=== PATIENT | female | born 1975 | race Caucasian/White ===

== ENCOUNTER 2020-03-26 14:38 | Outpatient (REF) | payer MEDICAID, SELFPAY | END 2020-03-26 14:39 | disposition home or self-care (01) | LOC: HO.LAB 14:38 | PROVIDERS: PCP Internal Medicine; Visit Provider Internal Medicine | DX: Z20.828 Contact with and (suspected) exposure to other viral communicable diseases (principal) | CPT/HCPCS: C9803; U0003 ==

== ENCOUNTER → 2020-04-18 10:12 | Outpatient (BNVA) | payer MEDICAID, SELFPAY | PROVIDERS: Visit Provider Advanced Practice Midwife | DX: Z30.41 Encounter for surveillance of contraceptive pills (principal) | CPT/HCPCS: 99212 ==

== ENCOUNTER 2020-05-22 14:48 | Outpatient (REF) | payer MEDICAID, SELFPAY ==
--- NOTE | 2020-05-22 | MM_ITS ---
EXAMINATION: MM SCREENING DIGITAL BREAST TOMOSYNTHESIS, BILATERAL CLINICAL INFORMATION: Screening. Asymptomatic. Family history breast cancer, mother, maternal aunt. The lifetime risk of breast cancer based on the Tyrer-Cuzick Model is 25%. COMPARISON: Outside mammography: 06/21/2018 ([facility]). TECHNIQUE: Digital breast tomosynthesis is performed in both the craniocaudal and mediolateral oblique views along with computer-aided detection (CAD). Synthesized 2D images are generated from the tomosynthesis. FINDINGS: There are scattered areas of fibroglandular density (ACR BI-RADS breast composition Category b). There are no significant masses, abnormal calcifications, or other abnormalities. Parenchymal pattern is similar to prior outside exam. The axilla and skin contours are unremarkable. MM/MM tomosynthesis screening BI IMPRESSION: No mammographic evidence of malignancy. ASSESSMENT: BI-RADS 1: Negative RECOMMENDATION: Routine annual mammography screening. This patient's information was entered into a reminder system with a target due date for their next mammogram.
== END 2020-05-22 14:49 | disposition home or self-care (01) ==
LOC: HO.MAMMO 14:48
PROVIDERS: PCP Internal Medicine; Visit Provider Obstetrics & Gynecology
DX: Z12.31 Encounter for screening mammogram for malignant neoplasm of breast (principal)
CPT/HCPCS: 77063; 77067

== ENCOUNTER → 2020-06-04 12:08 | Outpatient (BNVA) | payer MEDICAID, SELFPAY | PROVIDERS: PCP Internal Medicine; Visit Provider Obstetrics & Gynecology ==

== ENCOUNTER 2020-12-07 07:19 | Outpatient (REF) | payer MEDICAID, SELFPAY ==
--- NOTE | ~2020-12-07 | MR_ITS ---
EXAMINATION: MR BREAST WITHOUT AND WITH CONTRAST, BILATERAL CLINICAL INFORMATION: High-risk screening for family history of mother and maternal aunt. Lifetime risk greater than 25%. COMPARISON: Correlation to mammogram of 05/22/2020 TECHNIQUE: Imaging was performed with a dedicated breast coil. Prior to the administration of contrast, bilateral axial T1 and bilateral axial T2 weighted sequences were obtained. After the uneventful administration of?6 mL of Gadavist, dynamic contrast-enhanced VIBRANT series through the breasts in the axial plane were performed. Subtracted images were performed and reviewed. A delayed sagittal sequence through both breasts was acquired. Additionally, CAD post-processing, including maximum intensity projections, 3-D reconstructions and kinetic analysis, were performed an independent workstation and reviewed by the interpreting radiologist is a portion of this exam. FINDINGS: The patient's fibroglandular tissue demonstrates minimal background enhancement. LEFT BREAST: No suspicious masslike or non-masslike enhancement. No abnormal skin thickening or nipple retraction. No abnormal architectural distortion. Review of the T2 weighted images demonstrates no fibrocystic changes or dilated ducts. Review of kinetic images reveals no additional findings. RIGHT BREAST: No suspicious masslike or non-masslike enhancement. No abnormal skin thickening or nipple retraction. No abnormal architectural distortion. Review of the T2 weighted images demonstrates no fibrocystic changes or dilated ducts. Review of kinetic images reveals no additional findings. There is no suspicious internal mammary chain or axillary adenopathy. Limited views of the chest and abdomen are unremarkable. MR/MR breast BI wo/w con IMPRESSION: No MR specific evidence of malignancy. ASSESSMENT: LEFT BREAST: BI-RADS 1-Negative RIGHT BREAST: BI-RADS 1-Negative RECOMMENDATIONS: Routine mammographic imaging as per most recent study and MRI as per high risk protocol.
== END 2020-12-07 07:20 | disposition home or self-care (01) ==
LOC: HO.MRI 07:19
PROVIDERS: Visit Provider Obstetrics & Gynecology
DX: Z91.89 Other specified personal risk factors, not elsewhere classified (principal)
CPT/HCPCS: 77049; A9585

== ENCOUNTER 2020-12-18 20:30 | Emergency (ER) | payer MEDICAID, SELFPAY ==
--- NOTE | ~2020-12-18 | XR_ITS ---
EXAMINATION: XR CHEST CLINICAL INFORMATION: Fever COMPARISON: None TECHNIQUE: Frontal view of the chest was obtained. FINDINGS: The lungs are well expanded. There is no focal consolidation, edema, or effusion. No pneumothorax. The cardiomediastinal silhouette is within normal limits. No acute osseous abnormality. XR/XR chest 1V IMPRESSION: Clear lungs.
[2020-12-18 21:52] VITALS: BP 105/62; PULSE 97; RESP 18; TEMP 38.4; O2SAT 99; BMI 23.0
[2020-12-18 22:27] LABS: Hemoglobin 13.5 g/dl (12.0-16.0); Lymphocytes Absolute Auto 0.3 X10*3/uL (1.2-4.9); MANUAL DIFF FLAG SCAN; Mean Corpuscular Volume 91.7 fL (80-98); Monocytes Percent Auto 5.2 % (2-11); PLT CLUMP 1; SCAN SMEAR FLAG 1
[2020-12-18 22:28] LABS: Basophils Percent Auto 0.4 % (0-2); Hematocrit 39.7 % (37-47); Imm Gran Abs Auto 0.02 X10*3/uL (0.00-0.03); Imm Gran Pct Auto 0.4 % (0.0-0.4); Lymphocytes Percent Auto 5.8 % (20-40); Mean Corpuscular Hemoglobin 31.2 pg (27.0-33.0); Mean Platelet Volume 9.9 fL (9.4-12.3); Monocytes Absolute Auto 0.2 X10*3/uL (0.1-1.2); Neutrophils Absolute Auto 4.1 X10*3/uL (2.0-8.3); Neutrophils Percent Auto 88.2 % (45-73); Platelet Count 105 X10*3/uL (160-400); Red Blood Count 4.33 X10*6/uL (4.20-5.50); Red Cell Distribution Width 13.6 % (11.0-16.0); White Blood Count 4.6 X10*3/uL (4.8-10.8)
[2020-12-18 22:33] LABS: Appearance Urine CLEAR; Color Urine YELLOW; Glucose Urine UA NEG (NEG); Leukocyte Esterase Urine NEG (NEG); Nitrite Urine NEG (NEG); PH 7.5 (5.0-8.0); SLIDE REVIEW VERIFIED; Specific Gravity - Urine 1.015 (1.005-1.025); UACC Culture Trigger NO; Urine Blood NEG (NEG); Urine Ketones 5 MG/DL (NEG); Urine Protein 2+ MG/DL (NEG-TRACE)
[2020-12-18 22:34] LABS: UPreg QC Valid YES; Urine Pregnancy NEGATIVE (NEGATIVE)
[2020-12-18 22:42] LABS: Bacteria Urine 1+ /LPF; RBC Urine 0-2 /HPF (0); Squamous Epithelial Cell Urine TRACE /LPF; WBC Urine 0-2 /HPF (0-4)
[2020-12-18 22:55] LABS: Alanine Aminotransferase 40 U/L (0-31); Alkaline Phosphatase 46 U/L (39-117); Anion Gap 12 (12-20); Aspartate Amino Transferase 47 U/L (5-31); Bilirubin Total 0.7 mg/dL (0.0-1.0); Blood Urea Nitrogen 5 mg/dL (9-16); Calcium 8.8 mg/dL (8.4-10.2); Carbon Dioxide 24 mmol/L (22-29); Chloride 103 mmol/L (96-108); Creatinine Clr Calc Pharmacy 65.2; Estimated Glomerular Filt Rate > 60; Glucose Random 130 mg/dL (60-115); Potassium 3.7 mmol/L (3.3-5.1); Sodium 135 mmol/L (135-145); Total Protein 6.8 g/dL (6.5-8.0)
[2020-12-18 23:16] LABS: Influenza A PCR NEGATIVE (Negative); Influenza B PCR NEGATIVE (Negative); Resp Syncy Virus RNA Qual PCR NEGATIVE (Negative); SARS COV2 PCR INHOUSE NEGATIVE (Negative)
--- NOTE | 2020-12-19 00:03 | ED_ITS ---
HPI - Nausea/Vomiting/Diarrhea General Chief complaint: Nausea/Vomiting/Diarrhea <ALEJANDRA Lou - Last Filed: 12/19/20 00:53> Stated complaint: vomitting <ALEJANDRA Lou - Last Filed: 12/19/20 00:53> Time Seen by Provider: 12/18/20 23:44 <ALEJANDRA Lou Last Filed: 12/19/20 00:53> Source: patient <ALEJANDRA Lou Last Filed: 12/19/20 00:53> Mode of arrival: ambulatory <ALEJANDRA Lou Last Filed: 12/19/20 00:53> History of Present Illness HPI Narrative: 45-year-old female with no significant past medical history presenting to the ED complaining of generalized fatigue, myalgias, headache, fever T-max 103?, nausea, vomiting x2 days. Reports decreased PO intake. Reports was treated for UTI last week. Admits recently travel to [place]. Denies known bad food exposure. Denies CP/SOB, cough, abdominal pain, diarrhea, constipation, dysuria/hematuria, flank pain Was COVID vaccinated in September. <ALEJANDRA Lou - Last Filed: 12/19/20 00:53> MD elicited complaint: nausea and vomiting <ALEJANDRA Lou Last Filed: 12/19/20 00:53> Related Data Home medications: Previous Rx's Medication Instructions Recorded norethindrone (contraceptive) 0.35 0.35 mg PO DAILY #84 tab 04/18/20 mg tablet aluminum-mag hydroxide-simethicone 5 ml PO 5XD PRN #30 ml 12/19/20 200 mg-200 mg-20 mg/5 mL oral susp (Maalox Advanced) famotidine 20 mg tablet (Pepcid) 20 mg PO DAILY #14 tab 12/19/20 ondansetron HCl 4 mg tablet 4 mg PO Q8H PRN #10 tab 12/19/20 (Zofran) <ALEJANDRA Lou Last Filed: 12/19/20 00:53> Allergies/Adverse reactions: Allergies Allergy/AdvReac Type Severity Reaction Status Date / Time lactose [LACTOSE] AdvReac Intermediate DIARRHEA Verified 12/18/20 21:52 latex Allergy Unknown rash Uncoded 02/17/20 14:04 <ALEJANDRA Lou - Last Filed: 12/19/20 00:53> Review of Systems Review of Systems: Constitutional: +Fever, + Chills, No Night Sweats, + Fatigue, + Malaise ENT/Mouth: No Ear Pain, No sore throat, No Swallowing Difficulty Eyes: No Eye Pain, No Vision Changes Cardiovascular: No Chest Pain, No SOB Respiratory: No Cough, No Dyspnea Gastrointestinal: + Nausea, + Vomiting, No Diarrhea, No Constipation, No Abdominal pain Genitourinary: No Dysuria, No Hematuria, No Flank Pain Musculoskeletal: No joint pain, +Myalgias, No Joint Swelling Skin: No Skin Lesions, No rash Neuro: + Weakness, No Dizziness, +Headache <ALEJANDRA Lou - Last Filed: 12/19/20 00:53> Yes all other systems are reviewed and are negative <ALEJANDRA Lou - Last Filed: 12/19/20 00:53> [facility] Past Medical History Attestation statement: The following information was validated with the patient. <ALEJANDRA Lou Last Filed: 12/19/20 00:53> Medical History: Medical History History of cervical dysplasia History of depression <ALEJANDRA Lou Last Filed: 12/19/20 00:53> Surgical History: Surgical History History of loop electrosurgical excision procedure (LEEP) of cervix <ALEJANDRA Lou Last Filed: 12/19/20 00:53> Family History Family History: Family History Mother HTN (hypertension) Breast cancer Maternal Grandfather Cardiac abnormality Father Diabetes Pulmonary fibrosis Maternal Grandmother Colon cancer <ALEJANDRA Lou Last Filed: 12/19/20 00:53> Social History Social History: Social History Alcohol intake: current Alcohol intake frequency: 0-2 drinks per day Cigarettes Per Day: 6 Years Smoked: 22 Advance Directives: No Advance Directives Information Provided: No Patient : No Sexual orientation: Straight/Heterosexual <ALEJANDRA Lou - Last Filed: 12/19/20 00:53> Physical Exam Vital Signs: Vital Signs: Last Vital Signs Temp 101.1 F H 12/18/20 21:52 Pulse 97 12/18/20 21:52 Resp 18 12/18/20 21:52 BP 105/62 12/18/20 21:52 Pulse Ox 99 12/18/20 21:52 Body Mass Index 23.0 <ALEJANDRA Lou - Last Filed: 12/19/20 00:53> Vital Signs: Last Vital Signs Temp 101.1 F H 12/18/20 21:52 Pulse 97 12/18/20 21:52 Resp 18 12/18/20 21:52 BP 105/62 12/18/20 21:52 Pulse Ox 99 12/18/20 21:52 Body Mass Index 23.0 <ALEJANDRA Collazo - Last Filed: 12/19/20 01:31> Const: General: cooperative, healthy appearing and no acute distress <ALEJANDRA Lou - Last Filed: 12/19/20 00:53> Orientation/consciousness: patient oriented x3 <ALEJANDRA Lou - Last Filed: 12/19/20 00:53> Limitations: no limitations <ALEJANDRA Lou - Last Filed: 12/19/20 00:53> HENMT: Head: Yes normal to inspection and Yes atraumatic <ALEJANDRA Lou - Last Filed: 12/19/20 00:53> Ears: hearing grossly normal bilaterally <ALEJANDRA Lou - Last Filed: 12/19/20 00:53> General nose exam: Normal external nose present <ALEJANDRA Lou - Last Filed: 12/19/20 00:53> Face and sinus: Yes normal facial exam <ALEJANDRA Lou - Last Filed: 12/19/20 00:53> Eyes: General: appearance normal, both eyes and all related structures <ALEJANDRA Lou - Last Filed: 12/19/20 00:53> EOM: EOMs intact bilaterally <ALEJANDRA Lou - Last Filed: 12/19/20 00:53> Neck: Neck: Yes normal visual inspection and Yes no meningeal signs <ALEJANDRA Lou - Last Filed: 12/19/20 00:53> Resp: Effort & Inspection: normal respiratory effort <Jemma Chinonishi PA - Last Filed: 12/19/20 00:53> Auscultation: clear to auscultation bilaterally, no crackles, no rales, no r honchi and no wheezes <Jemma Chinonishi PA - Last Filed: 12/19/20 00:53> Cardio: Rate: regular rate <Jemma Grayson OK - Last Filed: 12/19/20 00:53> Heart sounds: S1 normal heart sound present and S2 normal heart sound present <Jemma Grayson OK - Last Filed: 12/19/20 00:53> GI: Inspection: Yes normal to inspection <Jemma Grayson OK - Last Filed: 12/19/20 00:53> Palpation (GI): Soft to palpation, nontender, no guarding and not rigid <Jemma Grayson OK - Last Filed: 12/19/20 00:53> : General: Yes no CVA tenderness <Jemma Grayson OK - Last Filed: 12/19/20 00:53> Back/Spine/Pelvis: Back: no CVA tenderness <Jemma Grayson OK - Last Filed: 12/19/20 00:53> Skin: Rashes: no rashes <Jemma Grayson OK - Last Filed: 12/19/20 00:53> Wounds: no wounds <Jemma Grayson [facility] [place] Last Filed: 12/19/20 00:53> Neuro: General: patient oriented x3 and no meningeal signs <Jemma Grayson OK - Last Filed: 12/19/20 00:53> Gait exam (Neuro): Normal gait present <Jemma Grayson OK - Last Filed: 12/19/20 00:53> Extrem: General: Yes normal to inspection <Jemmaclinton Galicia PA - Last Filed: 12/19/20 00:53> Course Course Course Narrative: -leukopenia of 4.6, AST/ALT mildly elevated, labs otherwise unremarkable -UA with 2+ protein, not infected, urine negative, COVID- 19/influenza/RSV negative XR chest 1V IMPRESSION: Clear lungs. -0051--on re-evaluation patient sitting up, able to tolerate p.o. rory quentin, just received symptomatic medications, will reassess. Results discussed. ED care transferred to ALEJANDRA Avila pending re-evaluation/symptomatic improvement <ALEJANDRA Lou - Last Filed: 12/19/20 00:53> Reevaluation(s) Reevaluation #1: Repeat temp 99.3. Patient feeling much better. She is stable for d/c home with supportive care. <ALEJANDRA Collazo - Last Filed: 12/19/20 01:31> MDM - Nausea/Vomiting/Diarrhea MDM Narrative Medical decision making narrative: 45-year-old female with no significant past medical history presenting to the ED complaining of generalized fatigue, myalgias, fever T-max 103?, nausea, vomiting x2 days. On exam, febrile to 101.1, NAD/nontoxic appearing, lungs CTA, abdomen soft/nontender, no CVAT. Concern for COVID-19/viral syndrome vs gastroenteritis vs colitis. Rule out continue DTI. Low concern for pyelo/renal stone without CVAT. Low concern for appendicitis/diverticulitis or panc reatitis Plan: Labs, UA, COVID-19 testing, IVF, symptomatic from days, reassess <ALEJANDRA Lou - Last Filed: 12/19/20 00:53> Medical Records Attestation: I reviewed the patient's medical records. <ALEJANDRA Lou Last Filed: 12/19/20 00:53> Lab Data Attestation: I reviewed the patient's lab results. <ALEJANDRA Lou Last Filed: 12/19/20 00:53> Result diagrams: : 12/18/20 22:17 12/18/20 22:17 <ALEJANDRA Lou Last Filed: 12/19/20 00:53> Labs: Lab Results 12/18/20 12/18/20 12/18/20 Range/Units 22:17 22:17 22:17 WBC 4.6 L (4.8-10.8) X10*3/uL RBC 4.33 (4.20-5.50) X10*6/uL Hgb 13.5 (12.0-16.0) g/dl Hct 39.7 (37-47) % MCV 91.7 (80-98) fL MCH 31.2 (27.0-33.0) pg MCHC 34.0 (31.0-35.0) g/dl RDW 13.6 (11.0-16.0) % Plt Count 105 L (160-400) X10*3/uL MPV 9.9 (9.4-12.3) fL Immature Gran % (Auto) 0.4 (0.0-0.4) % Neut % (Auto) 88.2 H (45-73) % Lymph % (Auto) 5.8 L (20-40) % [place] % (Auto) 5.2 (2-11) % Eos % (Auto) 0.0 (0-4) % Baso % (Auto) 0.4 (0-2) % Lymph # (Auto) 0.3 L (1.2-4.9) X10*3/uL [place] # (Auto) 0.2 (0.1-1.2) X10*3/uL Eos # (Auto) 0.0 (0.0-0.4) X10*3/uL Baso # (Auto) 0.0 (0.0-0.2) X10*3/uL Abs Immat Gran (auto) 0.02 (0.00-0.03) X10*3/uL Absolute Neuts (auto) 4.1 (2.0-8.3) X10*3/uL Absolute Nucleated RBC 0.000 (0.0-0.012) X10*3/uL Nucleated RBC % (auto) 0.0 (0.0-0.2) /100WBC Smear Tech's Comments VERIFIED Sodium 135 (135-145) mmol/L Potassium 3.7 (3.3-5.1) mmol/L Chloride 103 (96-108) mmol/L Carbon Dioxide 24 (22-29) mmol/L Anion Gap 12 (12-20) BUN 5 L (9-16) mg/dL Creatinine 0.92 (0.5-1.4) mg/dL Estim Creat Clear Calc 65.2 Estimated GFR > 60 Random Glucose 130 H (60-115) mg/dL Calcium 8.8 (8.4-10.2) mg/dL Magnesium 2.0 (1.6-2.6) mg/dL Total Bilirubin 0.7 (0.0-1.0) mg/dL AST 47 H (5-31) U/L ALT 40 H (0-31) U/L Alkaline Phosphatase 46 (39-117) U/L Total Protein 6.8 (6.5-8.0) g/dL Albumin 4.0 (3.5-5.0) g/dL Lipase 12 (8-78) U/L Urine Color Urine Appearance Urine pH (5.0-8.0) Ur Specific [place] (1.005-1.025) Urine Protein (NEG-TRACE) MG/DL Urine Glucose (UA) (NEG) MG/DL Urine Ketones (NEG) MG/DL Urine Blood (NEG) Urine Nitrite (NEG) Ur Leukocyte Esterase (NEG) Urine RBC (0) /HPF Urine WBC (0-4) /HPF Ur Squamous Epith Cells /LPF Urine Bacteria /LPF Urine Test NEGATIVE (NEGATIVE) Coronavirus (PCR) (Negative) Influenza Type A (PCR) (Negative) Influenza Type B (PCR) (Negative) RSV RNA Qual (PCR) (Negative) 12/18/20 12/18/20 Range/Units 22:17 22:17 WBC (4.8-10.8) X10*3/uL RBC (4.20-5.50) X10*6/uL Hgb (12.0-16.0) g/dl Hct (37-47) % MCV (80-98) fL MCH (27.0-33.0) pg MCHC (31.0-35.0) g/dl RDW (11.0-16.0) % Plt Count (160-400) X10*3/uL MPV (9.4-12.3) fL Immature Gran % (Auto) (0.0-0.4) % Neut % (Auto) (45-73) % Lymph % (Auto) (20-40) % [place] % (Auto) (2-11) % Eos % (Auto) (0-4) % Baso % (Auto) (0-2) % Lymph # (Auto) (1.2-4.9) X10*3/uL [place] # (Auto) (0.1-1.2) X10*3/uL Eos # (Auto) (0.0-0.4) X10*3/uL Baso # (Auto) (0.0-0.2) X10*3/uL Abs Immat Gran (auto) (0.00-0.03) X10*3/uL Absolute Neuts (auto) (2.0-8.3) X10*3/uL Absolute Nucleated RBC (0.0-0.012) X10*3/uL Nucleated RBC % (auto) (0.0-0.2) /100WBC Smear Tech's Comments Sodium (135-145) mmol/L Potassium (3.3-5.1) mmol/L Chloride (96-108) mmol/L Carbon Dioxide (22-29) mmol/L Anion Gap (12-20) BUN (9-16) mg/dL Creatinine (0.5-1.4) mg/dL Estim Creat Clear Calc Estimated GFR Random Glucose (60-115) mg/dL Calcium (8.4-10.2) mg/dL Magnesium (1.6-2.6) mg/dL Total Bilirubin (0.0-1.0) mg/dL AST (5-31) U/L ALT (0-31) U/L Alkaline Phosphatase (39-117) U/L Total Protein (6.5-8.0) g/dL Albumin (3.5-5.0) g/dL Lipase (8-78) U/L Urine Color YELLOW Urine Appearance CLEAR Urine pH 7.5 (5.0-8.0) Ur Specific [place] 1.015 (1.005-1.025) Urine Protein 2+ H (NEG-TRACE) MG/DL Urine Glucose (UA) NEG (NEG) MG/DL Urine Ketones 5 (NEG) MG/DL Urine Blood NEG (NEG) Urine Nitrite NEG (NEG) Ur Leukocyte Esterase NEG (NEG) Urine RBC 0-2 (0) /HPF Urine WBC 0-2 (0-4) /HPF Ur Squamous Epith Cells TRACE /LPF Urine Bacteria 1+ /LPF Urine Test (NEGATIVE) Coronavirus (PCR) NEGATIVE (Negative) Influenza Type A (PCR) NEGATIVE (Negative) Influenza Type B (PCR) NEGATIVE (Negative) RSV RNA Qual (PCR) NEGATIVE (Negative) <ALEJANDRA Lou - Last Filed: 12/19/20 00:53> Lab Results 12/18/20 12/18/20 12/18/20 Range/Units 22:17 22:17 22:17 WBC 4.6 L (4.8-10.8) X10*3/uL RBC 4.33 (4.20-5.50) X10*6/uL Hgb 13.5 (12.0-16.0) g/dl Hct 39.7 (37-47) % MCV 91.7 (80-98) fL MCH 31.2 (27.0-33.0) pg MCHC 34.0 (31.0-35.0) g/dl RDW 13.6 (11.0-16.0) % Plt Count 105 L (160-400) X10*3/uL MPV 9.9 (9.4-12.3) fL Immature Gran % (Auto) 0.4 (0.0-0.4) % Neut % (Auto) 88.2 H (45-73) % Lymph % (Auto) 5.8 L (20-40) % [place] % (Auto) 5.2 (2-11) % Eos % (Auto) 0.0 (0-4) % Baso % (Auto) 0.4 (0-2) % Lymph # (Auto) 0.3 L (1.2-4.9) X10*3/uL [place] # (Auto) 0.2 (0.1-1.2) X10*3/uL Eos # (Auto) 0.0 (0.0-0.4) X10*3/uL Baso # (Auto) 0.0 (0.0-0.2) X10*3/uL Abs Immat Gran (auto) 0.02 (0.00-0.03) X10*3/uL Absolute Neuts (auto) 4.1 (2.0-8.3) X10*3/uL Absolute Nucleated RBC 0.000 (0.0-0.012) X10*3/uL Nucleated RBC % (auto) 0.0 (0.0-0.2) /100WBC Smear Tech's Comments VERIFIED Sodium 135 (135-145) mmol/L Potassium 3.7 (3.3-5.1) mmol/L Chloride 103 (96-108) mmol/L Carbon Dioxide 24 (22-29) mmol/L Anion Gap 12 (12-20) BUN 5 L (9-16) mg/dL Creatinine 0.92 (0.5-1.4) mg/dL Estim Creat Clear Calc 65.2 Estimated GFR > 60 Random Glucose 130 H (60-115) mg/dL Calcium 8.8 (8.4-10.2) mg/dL Magnesium 2.0 (1.6-2.6) mg/dL Total Bilirubin 0.7 (0.0-1.0) mg/dL AST 47 H (5-31) U/L ALT 40 H (0-31) U/L Alkaline Phosphatase 46 (39-117) U/L Total Protein 6.8 (6.5-8.0) g/dL Albumin 4.0 (3.5-5.0) g/dL Lipase 12 (8-78) U/L Urine Color Urine Appearance Urine pH (5.0-8.0) Ur Specific [place] (1.005-1.025) Urine Protein (NEG-TRACE) MG/DL Urine Glucose (UA) (NEG) MG/DL Urine Ketones (NEG) MG/DL Urine Blood (NEG) Urine Nitrite (NEG) Ur Leukocyte Esterase (NEG) Urine RBC (0) /HPF Urine WBC (0-4) /HPF Ur Squamous Epith Cells /LPF Urine Bacteria /LPF Urine Test NEGATIVE (NEGATIVE) Coronavirus (PCR) (Negative) Influenza Type A (PCR) (Negative) Influenza Type B (PCR) (Negative) RSV RNA Qual (PCR) (Negative) 12/18/20 12/18/20 Range/Units 22:17 22:17 WBC (4.8-10.8) X10*3/uL RBC (4.20-5.50) X10*6/uL Hgb (12.0-16.0) g/dl Hct (37-47) % MCV (80-98) fL MCH (27.0-33.0) pg MCHC (31.0-35.0) g/dl RDW (11.0-16.0) % Plt Count (160-400) X10*3/uL MPV (9.4-12.3) fL Immature Gran % (Auto) (0.0-0.4) % Neut % (Auto) (45-73) % Lymph % (Auto) (20-40) % [place] % (Auto) (2-11) % Eos % (Auto) (0-4) % Baso % (Auto) (0-2) % Lymph # (Auto) (1.2-4.9) X10*3/uL [place] # (Auto) (0.1-1.2) X10*3/uL Eos # (Auto) (0.0-0.4) X10*3/uL Baso # (Auto) (0.0-0.2) X10*3/uL Abs Immat Gran (auto) (0.00-0.03) X10*3/uL Absolute Neuts (auto) (2.0-8.3) X10*3/uL Absolute Nucleated RBC (0.0-0.012) X10*3/uL Nucleated RBC % (auto) (0.0-0.2) /100WBC Smear Tech's Comments Sodium (135-145) mmol/L Potassium (3.3-5.1) mmol/L Chloride (96-108) mmol/L Carbon Dioxide (22-29) mmol/L Anion Gap (12-20) BUN (9-16) mg/dL Creatinine (0.5-1.4) mg/dL Estim Creat Clear Calc Estimated GFR Random Glucose (60-115) mg/dL Calcium (8.4-10.2) mg/dL Magnesium (1.6-2.6) mg/dL Total Bilirubin (0.0-1.0) mg/dL AST (5-31) U/L ALT (0-31) U/L Alkaline Phosphatase (39-117) U/L Total Protein (6.5-8.0) g/dL Albumin (3.5-5.0) g/dL Lipase (8-78) U/L Urine Color YELLOW Urine Appearance CLEAR Urine pH 7.5 (5.0-8.0) Ur Specific [place] 1.015 (1.005-1.025) Urine Protein 2+ H (NEG-TRACE) MG/DL Urine Glucose (UA) NEG (NEG) MG/DL Urine Ketones 5 (NEG) MG/DL Urine Blood NEG (NEG) Urine Nitrite NEG (NEG) Ur Leukocyte Esterase NEG (NEG) Urine RBC 0-2 (0) /HPF Urine WBC 0-2 (0-4) /HPF Ur Squamous Epith Cells TRACE /LPF Urine Bacteria 1+ /LPF Urine Test (NEGATIVE) Coronavirus (PCR) NEGATIVE (Negative) Influenza Type A (PCR) NEGATIVE (Negative) Influenza Type B (PCR) NEGATIVE (Negative) RSV RNA Qual (PCR) NEGATIVE (Negative) <ALEJANDRA Collazo - Last Filed: 12/19/20 01:31> Discharge Plan Discharge Clinical Impression: Gastroenteritis <ALEJANDRA Lou - Last Filed: 12/19/20 00:53> Patient Disposition: Home, Self-Care <ALEJANDRA Lou Last Filed: 12/19/20 00:53> Instructions: Acute Nausea and Vomiting (ED) <ALEJANDRA Lou - Last Filed: 12/19/20 00:53> Additional Instructions: Your blood work was reassuring, does show Mild decrease in her white blood cell count and mild increasing your liver enzymes You likely have a viral illness Zofran as an antinausea medication, take as needed Pepcid and Maalox will help with stomach acid reduction It is crucial you stay hydrated at home, drink plenty of fluids, Gatorade, Pedialyte Please follow-up with her doctor If her symptoms persist or worsen, constant or unremitting fever, constant nausea/vomiting, you are unable to eat or drink please return to the ED immediately <ALEJANDRA Lou - Last Filed: 12/19/20 00:53> Prescriptions: New ondansetron HCl [Zofran] 4 mg tablet 4 mg PO Q8H PRN (Reason: nausea and vomiting) Qty: 10 RF: 0 famotidine [Pepcid] 20 mg tablet 20 mg PO DAILY Qty: 14 RF: 0 alum-mag hydroxide-simeth [Maalox Advanced] 200-200-20 mg/5 mL suspension 5 ml PO 5XD PRN (Reason: dyspepsia) Qty: 30 RF: 0 No Action norethindrone (contraceptive) 0.35 mg tablet 0.35 mg PO DAILY Qty: 84 RF: 3 <ALEJANDRA Lou Last Filed: 12/19/20 00:53> Referrals: Alina Thornton MD [Primary Care Provider] - 2 days <ALEJANDRA Lou - Last Filed: 12/19/20 00:53>
[2020-12-19] MEDS: ondansetron HCL 4 MG/2 ML VIAL IVPUSH (00:07)
[2020-12-19] MEDS: Ketorolac Tromethamine 15 MG/ML VIAL IVPUSH (00:07)
[2020-12-19] MEDS: Famotidine/PF 20 MG/2 ML VIAL IVPUSH (00:07)
[2020-12-19 00:15] LABS: Lipase 12 U/L (8-78)
[2020-12-19] MEDS: Lidocaine HCl Viscous 2 % 15 ML SOLUTION MUCOUS MEM (00:45)
[2020-12-19] MEDS: Acetaminophen 325 MG TABLET 650 MG PO (00:45)
[2020-12-19] MEDS: Magnesium Hydrox/Alum Hydrox 30 ML ORAL.SUSP PO (00:45)
[2020-12-19 02:00] VITALS: BP 100/38; PULSE 91; RESP 16; O2SAT 97
[2020-12-19 02:11] VITALS: BP 100/38; PULSE 83; RESP 16
[2020-12-19] MEDS: Butalb/Acetamin/Caff 50/325/40 TABLET 1 TAB PO (02:12)
== END 2020-12-19 02:17 | disposition home or self-care (01) ==
PROVIDERS: Physician Assistant; Emergency Provider Emergency Medicine; PCP Internal Medicine
DX: K52.9 Noninfective gastroenteritis and colitis, unspecified (principal); Z20.822 Contact with and (suspected) exposure to COVID-19; R50.9 Fever, unspecified; M79.10 Myalgia, unspecified site; F17.210 Nicotine dependence, cigarettes, uncomplicated
CPT/HCPCS: 0241U; 36415; 71045; 80053; 81001; 81025; 83690; 83735; 85025; 96374; 96375; 99284; J1885; J2405

== ENCOUNTER 2020-12-21 10:10 | Emergency (ER) | payer MEDICAID, SELFPAY ==
[2020-12-21 10:50] VITALS: BP 111/64; PULSE 75; RESP 18; TEMP 36.8; O2SAT 99; BMI 23.3
--- NOTE | 2020-12-21 11:55 | ED.GENADULT ---
HPI - General Adult General Chief complaint: Headache Stated complaint: headache Time Seen by Provider: 12/21/20 11:07 Source: patient Mode of arrival: ambulatory Limitations: no limitations History of Present Illness HPI narrative: 45-year-old female presents due to a call from urgent care provider who saw her yesterday. She reports urgent care provider was concerned for her low white blood cell count and low platelet count and sent her here for recheck.. Stated that urgent care provider did a tick panel on her yesterday. Patient awoke with a headache that resolved this morning with Aleve, patient has no symptoms at this time Four days ago the patient had gradual onset headache, vomiting, fevers, fatigue, myalgias, and nausea. Patient was seen December 19, 2 days ago in the emergency room. Patient was COVID negative, labs were notable for white blood cell count of 4.6 platelet count of 105. Urine was negative, chest x-ray was negative. Patient was diagnosed with a gastroenteritis. When she had her headache she was mildly photophobic, no visual changes, no stiff neck, no rashes, no joint pain. Reports her headache was in the back of her lower skull bilaterally, and she was using acetaminophen to control it. Patient's fever resolved yesterday, she is no longer nauseous, no more vomiting, she can eat food. Reports today she woke up with a headache, and used Aleve for the 1st time since this started. Reports no headache at all now, no other symptoms. Patient was on Macrobid last week for UTI. 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 Onset (ago): day(s) (4) Location: head Radiation: non-radiation Severity: moderate Severity scale (1-10): 7 Quality: aching Pain Consistency: intermittent and now resolved Relieving factors: medication Exacerbating factors: none Associated symptoms: denies other symptoms Treatments prior to arrival: NSAID Related Data Previous Rx's Medication Instructions Recorded norethindrone (contraceptive) 0.35 0.35 mg PO DAILY #84 tab /16/20 mg tablet aluminum-mag hydroxide-simethicone 5 ml PO 5XD PRN #30 ml 12/19/20 200 mg-200 mg-20 mg/5 mL oral susp (Maalox Advanced) famotidine 20 mg tablet (Pepcid) 20 mg PO DAILY #14 tab 12/19/20 ondansetron HCl 4 mg tablet 4 mg PO Q8H PRN #10 tab 12/19/20 (Zofran) doxycycline hyclate 100 mg tablet 100 mg PO BID 14 Days #28 tab 12/21/20 Allergies Allergy/AdvReac Type Severity Reaction Status Date / Time lactose [LACTOSE] AdvReac Intermediate DIARRHEA Verified 12/21/20 10:50 latex Allergy Unknown rash Uncoded 02/17/20 14:04 Review of Systems Constitutional: Constitutional: Reports body ache(s) (now resolved), Reports fatigue (now resolvd), Reports fever(s) (now resolved), Reports headache(s) (now resolved) and Reports malaise (now resolved) Eyes: Eyes: Denies blurry vision, Denies change in vision, Denies diplopia, Denies eye pain and Reports photophobia ENT: Denies vertigo, Denies dizziness, Denies otalgia, Reports headache(s) (now resolved), Denies mouth pain, Denies post nasal drip, Denies sinus pain and Denies sore throat Cardiovascular: Cardiovascular: Denies chest pain, Denies syncope, Denies leg edema, Denies lightheadedness, Denies Loss of Consciousness, Denies palpitations and Denies dyspnea Respiratory: Respiratory: Denies chest congestion, Denies cough and Denies dyspnea Gastrointestinal: Gastrointestinal: Denies abdominal pain, Denies hematochezia, Denies constipation, Denies diarrhea, Reports nausea (now resolved) and Reports vomiting (now resolved) Genitourinary: Genitourinary: Reports no additional female genitourinary complaints Musculoskeletal: Musculoskeletal: Reports myalgias (now resolved) Integumentary/Breasts: Skin/Breast: Denies lesions, Denies erythema and Denies rash Neurologic: Denies Abnormal speech present, Denies confusion, Denies vertigo, Denies dizziness, Denies syncope, Reports headache(s) (now resolved) and Denies Sensory deficit (Neuro) Psychiatric: Psychiatric: Denies anxiety, Denies confusion and Denies depression Endocrine: Endocrine: Reports fatigue (now resolvd) and Denies palpitations PMFSH Past Medical History Medical History History of cervical dysplasia History of depression Surgical History History of loop electrosurgical excision procedure (LEEP) of cervix Family History Family History Mother HTN (hypertension) Breast cancer Maternal Grandfather Cardiac abnormality Father Diabetes Pulmonary fibrosis Maternal Grandmother Colon cancer Social History Social History Alcohol intake: current Alcohol intake frequency: 0-2 drinks per day Cigarettes Per Day: 6 Years Smoked: 22 Advance Directives: Yes Advance Directives Information Provided: Yes Advance Directives on File: No Patient : No Sexual orientation: Straight/Heterosexual Physical Exam Vital Signs: Vital Signs: Last Vital Signs Temp 98.3 F 12/21/20 10:50 Pulse 75 12/21/20 10:50 Resp 18 12/21/20 10:50 BP 111/64 12/21/20 10:50 Pulse Ox 99 12/21/20 10:50 Body Mass Index 23.3 Const: General: comfortable, no acute distress, well developed, alert and awake; No confusion Nutritional Appearance: well nourished Orientation/consciousness: patient oriented x3 and No confusion Limitations: no limitations HENMT: Head: Yes normal to inspection, Yes normocephalic and Yes atraumatic Ears: hearing grossly normal bilaterally, external ears normal, TM's normal bilaterally and EAC's normal General nose exam: Normal external nose present Face and sinus: Yes normal facial exam and Yes sinuses nontender Mouth: Normal oral and palatal mucosa present Throat: Yes posterior oropharynx normal Eyes: Conjunctivae: conjunctivae normal Pupils: Equal, round and reactive pupils present EOM: EOMs intact bilaterally and No Nystagmus present Direct Ophthalmoscopy: photophobia Neck: Neck: Yes full ROM, Yes no lymphadenopathy and Yes supple Resp: Effort & Inspection: normal respiratory effort and able to speak in complete sentences Auscultation: clear to auscultation bilaterally, no crackles, no rales, no rhonchi and no wheezes Cardio: Rate: regular rate Rhythm: regular rhythm Heart sounds: S1 normal heart sound present and S2 normal heart sound present GI: Inspection: Yes normal to inspection Palpation (GI): Soft to palpation, nontender, no guarding and not rigid Percussion: Yes normal to percussion Auscultation: normal bowel sounds Skin: General skin exam: no rashes or lesions noted Neuro: General: patient oriented x3, gait normal and No confusion Cranial nerves: Yes CN's II-XII intact bilaterally, Yes Facial sensation intact/muscles of mastication intact, Yes Equal, round and reactive pupils present, Yes Bilaterally intact EOM present, Yes Nystagmus not present, Yes Normal facial strength present, Yes Midline tongue present, Yes Ability to bilaterally rotate head present, Yes Ability to bilaterally elevate shoulders present and No Nystagmus present Cognition (Neuro): normal cognition Speech: No Abnormal speech present Gait exam (Neuro): Normal gait present Motor exam (neuro): 5/5 motor strength present throughout and Pronator motor function not present Sensory Exam: No Sensory deficit (Neuro) Deep tendon reflexes (DTR's): Right brachioradialis reflex intensity grade: 2+, Left brachioradialis reflex intensity grade: 2+, Right patellar reflex intensity grade: 2+ and Left patellar reflex intensity grade: 2+ Coordination: [id number] test normal, [id number] test normal, tandem gait normal, does not sway with eyes open, Romberg test negative and Normal rapid alternating movements of the distal upper extremity present (Neuro) Pupils: Normal pupillary reactivity/response: bilateral Extrem: General: Yes normal to inspection and Yes full ROM Psych: Appearance: grossly normal Affect: normal affect Attitude: cooperative Thought process: Normal thought process present Course Course Course Narrative: 85-year-old female who had headache, fevers, nausea, vomiting, sent here from urgent care for low white blood cell and platelet count. Patient tested for Lyme and tick panel yesterday at urgent care, however not placed on doxycycline. On exam, patient is well-appearing, no focal neuro deficits, neuro exam is completely benign. Patient has no lesions or rashes, no erythema migrans, no joint swelling or joint redness. On December 18, 2020, patient had a white blood cell count of 4.6, platelets 105, creatinine 0.92, hemoglobin 13.5, hematocrit 39.7 Today, patient has a white blood cell count of 4.5, platelet count of 111, creatinine of 0.71, hemoglobin 11.9, hematocrit 35.6 Sent FOBT, was positive, but no gross rectal bleeding Patient does endorse a history of hemorrhoids. 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 Treated with doxy for possible Lyme/Anplasmosis. Follow up with PCP. Headache return precautions: sudden worsening headache, visual changes, fevers Medical Decision Making Lab Data Result diagrams: 12/21/20 12:20 12/21/20 12:20 Labs: Lab Results 12/21/20 12/21/20 12/21/20 Range/Units 12:20 12:20 13:09 WBC 4.5 L (4.8-10.8) X10*3/uL RBC 3.84 L (4.20-5.50) X10*6/uL Hgb 11.9 L (12.0-16.0) g/dl Hct 35.6 L (37-47) % MCV 92.7 (80-98) fL MCH 31.0 (27.0-33.0) pg MCHC 33.4 (31.0-35.0) g/dl RDW 13.8 (11.0-16.0) % Plt Count 111 L (160-400) X10*3/uL MPV 11.4 (9.4-12.3) fL Immature Gran % (Auto) 0.2 (0.0-0.4) % Neut % (Auto) 52.6 (45-73) % Lymph % (Auto) 36.0 (20-40) % [place] % (Auto) 9.3 (2-11) % Eos % (Auto) 1.5 (0-4) % Baso % (Auto) 0.4 (0-2) % Lymph # (Auto) 1.6 (1.2-4.9) X10*3/uL [place] # (Auto) 0.4 (0.1-1.2) X10*3/uL Eos # (Auto) 0.1 (0.0-0.4) X10*3/uL Baso # (Auto) 0.0 (0.0-0.2) X10*3/uL Abs Immat Gran (auto) 0.01 (0.00-0.03) X10*3/uL Absolute Neuts (auto) 2.4 (2.0-8.3) X10*3/uL Absolute Nucleated RBC 0.000 (0.0-0.012) X10*3/uL Nucleated RBC % (auto) 0.0 (0.0-0.2) /100WBC Smear Tech's Comments VERIFIED Sodium 138 (135-145) mmol/L Potassium 3.9 (3.3-5.1) mmol/L Chloride 106 (96-108) mmol/L Carbon Dioxide 26 (22-29) mmol/L Anion Gap 10 L (12-20) BUN 7 L (9-16) mg/dL Creatinine 0.71 (0.5-1.4) mg/dL Estim Creat Clear Calc 84.5 Estimated GFR > 60 Random Glucose 103 (60-115) mg/dL Calcium 9.2 (8.4-10.2) mg/dL Total Bilirubin 0.3 (0.0-1.0) mg/dL AST 43 H (5-31) U/L ALT 54 H (0-31) U/L Alkaline Phosphatase 47 (39-117) U/L Total Protein 6.1 L (6.5-8.0) g/dL Albumin 3.6 (3.5-5.0) g/dL Stool Occult Blood (NEGATIVE) COVID-19 ([facility]) Negative (Negative) COVID-19 Clin Com See Note 12/21/20 Range/Units 13:09 WBC (4.8-10.8) X10*3/uL RBC (4.20-5.50) X10*6/uL Hgb (12.0-16.0) g/dl Hct (37-47) % MCV (80-98) fL MCH (27.0-33.0) pg MCHC (31.0-35.0) g/dl RDW (11.0-16.0) % Plt Count (160-400) X10*3/uL MPV (9.4-12.3) fL Immature Gran % (Auto) (0.0-0.4) % Neut % (Auto) (45-73) % Lymph % (Auto) (20-40) % [place] % (Auto) (2-11) % Eos % (Auto) (0-4) % Baso % (Auto) (0-2) % Lymph # (Auto) (1.2-4.9) X10*3/uL [place] # (Auto) (0.1-1.2) X10*3/uL Eos # (Auto) (0.0-0.4) X10*3/uL Baso # (Auto) (0.0-0.2) X10*3/uL Abs Immat Gran (auto) (0.00-0.03) X10*3/uL Absolute Neuts (auto) (2.0-8.3) X10*3/uL Absolute Nucleated RBC (0.0-0.012) X10*3/uL Nucleated RBC % (auto) (0.0-0.2) /100WBC Smear Tech's Comments Sodium (135-145) mmol/L Potassium (3.3-5.1) mmol/L Chloride (96-108) mmol/L Carbon Dioxide (22-29) mmol/L Anion Gap (12-20) BUN (9-16) mg/dL Creatinine (0.5-1.4) mg/dL Estim Creat Clear Calc Estimated GFR Random Glucose (60-115) mg/dL Calcium (8.4-10.2) mg/dL Total Bilirubin (0.0-1.0) mg/dL AST (5-31) U/L ALT (0-31) U/L Alkaline Phosphatase (39-117) U/L Total Protein (6.5-8.0) g/dL Albumin (3.5-5.0) g/dL Stool Occult Blood POSITIVE (NEGATIVE) COVID-19 ([facility]) (Negative) COVID-19 Clin Com Discharge Plan Discharge Clinical Impression: Abnormal laboratory test result Patient Disposition: Home, Self-Care Additional Instructions: Please fill your prescription for doxycycline and start it today. Please note the doxycycline can make you more sensitive to the sun. Please cover up and use sunscreen while you are taking it. Please buy [id number] B12 and folate, and use the supplements for the next month. Please call your primary care provider today for an appointment as soon as possible. You had blood in your stools today. Please arrange with the primary care provider to have a colonoscopy. If your headache is mild, do not worry. If you have a sudden severe headache, with or without vomiting, visual changes, stiff neck, or fevers, please return to emergency room Please return to emergency room for any new or concerning symptoms Prescriptions: New doxycycline hyclate 100 mg tablet 100 mg PO BID 14 Days Qty: 28 RF: 0 No Action ondansetron HCl [Zofran] 4 mg tablet 4 mg PO Q8H PRN (Reason: nausea and vomiting) Qty: 10 RF: 0 famotidine [Pepcid] 20 mg tablet 20 mg PO DAILY Qty: 14 RF: 0 alum-mag hydroxide-simeth [Maalox Advanced] 200-200-20 mg/5 mL suspension 5 ml PO 5XD PRN (Reason: dyspepsia) Qty: 30 RF: 0 norethindrone (contraceptive) 0.35 mg tablet 0.35 mg PO DAILY Qty: 84 RF: 3
[2020-12-21 12:27] LABS: Basophils Percent Auto 0.4 % (0-2); Eosinophils Absolute Auto 0.1 X10*3/uL (0.0-0.4); Eosinophils Percent Auto 1.5 % (0-4); Hematocrit 35.6 % (37-47); Hemoglobin 11.9 g/dl (12.0-16.0); Imm Gran Abs Auto 0.01 X10*3/uL (0.00-0.03); Imm Gran Pct Auto 0.2 % (0.0-0.4); Lymphocytes Absolute Auto 1.6 X10*3/uL (1.2-4.9); MANUAL DIFF FLAG SCAN; Mean Corpuscular HGB Conc 33.4 g/dl (31.0-35.0); Mean Corpuscular Volume 92.7 fL (80-98); Mean Platelet Volume 11.4 fL (9.4-12.3); Monocytes Absolute Auto 0.4 X10*3/uL (0.1-1.2); Monocytes Percent Auto 9.3 % (2-11); Neutrophils Absolute Auto 2.4 X10*3/uL (2.0-8.3); Neutrophils Percent Auto 52.6 % (45-73); Platelet Count 111 X10*3/uL (160-400); Red Blood Count 3.84 X10*6/uL (4.20-5.50); Red Cell Distribution Width 13.8 % (11.0-16.0); SCAN SMEAR FLAG 1; White Blood Count 4.5 X10*3/uL (4.8-10.8)
[2020-12-21 12:56] LABS: Alanine Aminotransferase 54 U/L (0-31); Albumin Level 3.6 g/dL (3.5-5.0); Alkaline Phosphatase 47 U/L (39-117); Anion Gap 10 (12-20); Aspartate Amino Transferase 43 U/L (5-31); Bilirubin Total 0.3 mg/dL (0.0-1.0); Blood Urea Nitrogen 7 mg/dL (9-16); Calcium 9.2 mg/dL (8.4-10.2); Carbon Dioxide 26 mmol/L (22-29); Chloride 106 mmol/L (96-108); Creatinine Clr Calc Pharmacy 84.5; Estimated Glomerular Filt Rate > 60; Glucose Random 103 mg/dL (60-115); Potassium 3.9 mmol/L (3.3-5.1); Sodium 138 mmol/L (135-145); Total Protein 6.1 g/dL (6.5-8.0)
[2020-12-21 13:17] LABS: SLIDE REVIEW VERIFIED
[2020-12-21 13:18] LABS: OBS1 POSITIVE (NEGATIVE)
[2020-12-21 13:19] LABS: OBS Int Ctl Valid YES
[2020-12-21 13:33] LABS: COVID-19 Test Negative (Negative)
[2020-12-21 14:21] LABS: Folate 17.6 ng/mL (> or = 4.0); Vitamin B12 552 pg/mL (200-900)
== END 2020-12-21 14:11 | disposition home or self-care (01) ==
PROVIDERS: Physician Assistant; Emergency Provider Internal Medicine; PCP Internal Medicine
DX: R79.89 Other specified abnormal findings of blood chemistry (principal); D72.819 Decreased white blood cell count, unspecified; D69.6 Thrombocytopenia, unspecified; Z20.822 Contact with and (suspected) exposure to COVID-19; R51.9 Headache, unspecified; K92.1 Melena; F17.210 Nicotine dependence, cigarettes, uncomplicated
CPT/HCPCS: 36415; 80053; 82272; 82607; 82746; 85025; 87635; 99283

== ENCOUNTER 2021-02-05 14:48 | Outpatient (REF) | payer MEDICAID, SELFPAY ==
[2021-02-05 16:58] LABS: Hematocrit 38.5 % (37-47); Hemoglobin 12.8 g/dl (12.0-16.0); Mean Corpuscular HGB Conc 33.2 g/dl (31.0-35.0); Mean Corpuscular Hemoglobin 31.4 pg (27.0-33.0); Mean Corpuscular Volume 94.4 fL (80-98); Mean Platelet Volume 10.5 fL (9.4-12.3); Platelet Count 263 X10*3/uL (160-400); Red Blood Count 4.08 X10*6/uL (4.20-5.50); Red Cell Distribution Width 14.4 % (11.0-16.0)
[2021-02-05 17:30] LABS: Alanine Aminotransferase 23 U/L (0-31); Albumin Level 4.4 g/dL (3.5-5.0); Alkaline Phosphatase 34 U/L (39-117); Anion Gap 13 (12-20); Aspartate Amino Transferase 28 U/L (5-31); Bilirubin Direct 0.3 mg/dL (0.0-0.5); Bilirubin Total 0.5 mg/dL (0.0-1.0); Blood Urea Nitrogen 15 mg/dL (9-16); C Reactive Protein 0.07 mg/dL (< or = 0.50); Calcium 9.8 mg/dL (8.4-10.2); Carbon Dioxide 26 mmol/L (22-29); Chloride 105 mmol/L (96-108); Estimated Glomerular Filt Rate > 60; Gamma Glutamyl Transpeptidase 20 U/L (7-33); Glucose Random 89 mg/dL (60-115); Potassium 4.5 mmol/L (3.3-5.1); Sodium 139 mmol/L (135-145); Total Protein 7.1 g/dL (6.5-8.0)
[2021-02-05 17:52] LABS: Ferritin 39 ng/mL (10-250)
[2021-02-06 07:59] LABS: HBsAGNum1 0.15 S/CO (0.00-0.99); HIV AB/AG Nonreactive (Nonreactive); HIV Num 1 0.09 S/CO (0.00-0.99); Hepatitis A Antibody IgM 0.19 Index (0-0.79); Hepatitis B Surface Antigen Negative (Negative); ~HepC Num1 0.09 S/CO (0.00-0.79); ~Hepatitis A Antibody IgM Nonreactive (Nonreactive); ~Hepatitis C Antibody Nonreactive (Nonreactive)
[2021-02-06 08:03] LABS: HBc Num1 0.05 S/CO (0.00-0.79); Hepatitis B Core Antibody Nonreactive (Nonreactive); ~Hepatitis B Surface Antibody REACTIVE (Nonreactive)
[2021-02-06 12:21] LABS: Alpha Fetoprotein 3.2 ng/mL
[2021-02-06 14:41] LABS: Ceruloplasmin 23 mg/dL (18-53)
[2021-02-09 23:46] LABS: Smooth Muscle Antibody <20 U (<20)
[2021-02-11 08:27] LABS: Mitochondrial Antibodies NEGATIVE (NEGATIVE)
== END 2021-02-05 14:49 | disposition home or self-care (01) ==
LOC: HO.LAB 14:48
PROVIDERS: PCP Internal Medicine; Referring Provider Family Medicine; Visit Provider Nurse Practitioner Family
DX: Z12.11 Encounter for screening for malignant neoplasm of colon (principal); R79.89 Other specified abnormal findings of blood chemistry; K58.9 Irritable bowel syndrome, unspecified; R19.7 Diarrhea, unspecified; R74.8 Abnormal levels of other serum enzymes; R19.5 Other fecal abnormalities
CPT/HCPCS: 36415; 80053; 82105; 82248; 82390; 82728; 82977; 85027; 86140; 86255; 86256; 86704; 86706; 86709; 86803; 87340; 87389; 99202

== ENCOUNTER → 2021-02-13 10:56 | Outpatient (BNVA) | payer MEDICAID, SELFPAY | PROVIDERS: PCP Internal Medicine; Visit Provider Obstetrics & Gynecology ==

== ENCOUNTER → 2021-03-22 10:38 | Outpatient (BNVA) | payer MEDICAID, SELFPAY | PROVIDERS: PCP Internal Medicine; Referring Provider Internal Medicine; Visit Provider Surgery | DX: Z80.3 Family history of malignant neoplasm of breast (principal) | CPT/HCPCS: 99202 ==

== ENCOUNTER 2021-04-09 10:33 | Outpatient (REF) | payer MEDICAID, SELFPAY ==
--- NOTE | ~2021-04-09 | US_ITS ---
EXAMINATION: US COMPLETE ABDOMEN WITH LIVER ELASTOGRAPHY CLINICAL INFORMATION: Abnormal blood chemistry. COMPARISON: None. TECHNIQUE: Real-time imaging of the abdominal viscera. Noninvasive ultrasound liver fibrosis assessment is performed using Donaldo ElastPQ point quantification shear wave elastography (pSWE) with a C5-2 MHz transducer. Multiple elastography samples are obtained. FINDINGS: PANCREAS: Normal. The visualized pancreatic head and body are normal in appearance. The remainder of the pancreas is obscured from visualization by the overlying bowel gas. ABDOMINAL AORTA: The proximal, middle, and distal aortic segments are normal in caliber. INFERIOR VENA CAVA: Visualized portions are normal. LIVER: Normal. The liver demonstrates normal size, contour and echogenicity. No focal lesion or intrahepatic biliary duct dilatation. The right lobe measures 17.0 cm in length. The left lobe measures 11.6 cm in length. Portal flow is hepatopetal. The middle portal vein appears prominent measuring 1.3 cm. Shear wave liver elastography median stiffness is 1.55 m/s (reference: normal median stiffness is 1.3 m/s or less). IQR/median stiffness to assess sampling precision is 0.21 (reference: good quality data set is IQR/median stiffness of 0.15 or less). GALLBLADDER: The gallbladder is physiologically distended without evidence of stones, sludge, polyps, wall thickening or pericholecystic fluid. Within the gallbladder, there is an echogenic focus versus comet tail artifact. COMMON BILE DUCT: Normal in caliber measuring 0.6 cm in diameter. RIGHT KIDNEY: Normal. No hydronephrosis. No renal calculi or focal parenchymal lesions. The kidney measures 10.5 cm in maximum dimension. LEFT KIDNEY: Normal. No hydronephrosis. No renal calculi or focal parenchymal lesions. The kidney measures 9.8 cm in maximum dimension. SPLEEN: Normal. The spleen measures 10.0 cm in maximum dimension. FREE FLUID: None. US/US abdomen comp w elastography IMPRESSION: 1. Comet tail artifact most likely along the anterior gallbladder wall. Echogenic stone is considered less likely. No wall thickening. 2. Mild prominent portal vein measuring 1.3 cm. Normal hepatopetal flow seen. 3. The rest of the abdominal ultrasound is unremarkable. 4. Liver elastography: Median liver stiffness 1.55.This corresponds to cACLD ruled out. REFERENCE: Society of Radiologists in Ultrasound Liver Stiffness Thresholds (2020): LIVER STIFFNESS THRESHOLDS: *Liver Stiffness equal or less than 1.3 m/s: High probability of being normal. *Liver Stiffness less than 1.7 m/s: In the absence of other known clinical signs, rules out compensated advanced chronic liver disease. *Liver Stiffness 1.7-2.1 m/s: Suggestive of compensated advanced chronic liver disease but need further test for confirmation. *Liver Stiffness over 2.1 m/s: Rules in compensated advanced chronic liver disease. *Liver Stiffness over 2.4 m/s: Suggestive of clinically significant portal hypertension. QUALITY OF DATA SET: *IQR/Median value equal or less than 0.15 implies a quality data set. *IQR/Median value over 0.15 implies a poor quality data set. SIGNIFICANT CHANGE FROM PRIOR EXAM: Significant change if liver stiffness measurement is 10% or greater from prior exam. OTHER CONSIDERATIONS: The stage of liver fibrosis may be overestimated in the setting of acute hepatitis, liver inflammation, elevated liver function tests, hepatic vascular congestion, obstructive cholestasis, non-fasting state, and infiltrative diseases such as amyloidosis and lymphoma. In some patients with NAFLD, the liver stiffness thresholds for compensated advanced chronic liver disease may be lower. In causes other than viral hepatitis and NAFLD, liver stiffness thresholds are not well established.
== END 2021-04-09 10:34 | disposition home or self-care (01) ==
LOC: HO.US 10:33
PROVIDERS: PCP Internal Medicine; Visit Provider Nurse Practitioner Family
DX: R79.89 Other specified abnormal findings of blood chemistry (principal)
CPT/HCPCS: 76705; 76981

== ENCOUNTER → 2021-04-19 09:47 | Outpatient (BNVA) | payer MEDICAID, SELFPAY | PROVIDERS: PCP Internal Medicine; Referring Provider Internal Medicine; Visit Provider Nurse Practitioner Family | DX: R79.89 Other specified abnormal findings of blood chemistry (principal) | CPT/HCPCS: 99212 ==

== ENCOUNTER 2021-05-24 13:38 | Outpatient (REF) | payer MEDICAID, SELFPAY ==
--- NOTE | ~2021-05-24 | MM_ITS ---
EXAMINATION: MM SCREENING DIGITAL BREAST TOMOSYNTHESIS, BILATERAL CLINICAL INFORMATION: Screening. Asymptomatic. Prior history breast cancer, mother, aunt. The lifetime risk of breast cancer based on the Tyrer-Cuzick Model is 24%. COMPARISON: Mammography: 05/22/2020; outside exam 06/21/2018 ([facility]); MRI bilateral breasts 12/07/2020. TECHNIQUE: Digital breast tomosynthesis is performed in both the craniocaudal and mediolateral oblique views along with computer-aided detection (CAD). Synthesized 2D images are generated from the tomosynthesis. FINDINGS: There are scattered areas of fibroglandular density (ACR BI-RADS breast composition Category b). The left breast is unremarkable. There is no mass or architectural abnormality or developing density. Neither breast shows abnormal calcifications. The axilla and skin contours are unremarkable. Incidental dermal lesion again noted posterior inferior right breast. There is a questionable round 1 cm asymmetric density just inferior to posterior nipple line on right MLO tomography 8.5 cm from nipple. This could be incompletely compressed glandular tissue. Patient will be recalled for additional imaging to fully characterize. MM/MM tomosynthesis screening BI IMPRESSION: 1. Right: Questionable round 1 cm asymmetric density posterior right breast on MLO tomography. 2. Left: No mammographic evidence of malignancy. ASSESSMENT: BI-RADS 0: Incomplete - Need Additional Imaging Evaluation RECOMMENDATION: 1. Additional views of the right breast (spot MLO, exaggerated CC). 2. Targeted ultrasound if warranted after review of the additional views. 3. Radiology department staff will contact the patient for additional imaging. 4. The lifetime risk of breast cancer based on the Tyrer-Cuzick Model is 24%. Additional annual adjunct screening with breast MRI may be of benefit in women with a risk score of 20% or greater. This patient's information was entered into a reminder system with a target due date for their next mammogram.
== END 2021-05-24 13:39 | disposition home or self-care (01) ==
LOC: HO.MAMMO 13:38
PROVIDERS: Visit Provider Obstetrics & Gynecology
DX: Z12.31 Encounter for screening mammogram for malignant neoplasm of breast (principal)
CPT/HCPCS: 77063; 77067

== ENCOUNTER 2021-06-05 13:35 | Outpatient (REF) | payer MEDICAID, SELFPAY ==
--- NOTE | ~2021-06-05 | MM_ITS ---
EXAMINATION: MM DIAGNOSTIC DIGITAL MAMMOGRAPHY, RIGHT CLINICAL INFORMATION: Recall from screening for question of asymmetric density posterior right breast. Family history postmenopausal breast cancer, mother and aunt. TC score 24%. COMPARISON: Mammography: 05/24/2021, 05/22/2020, outside mammography 06/21/2018 ([facility]). TECHNIQUE: Digital mammography is performed in the following views: Exaggerated CC, spot MLO. FINDINGS: There are scattered areas of fibroglandular density (ACR BI-RADS breast composition Category b). Additional views show scattered fibroglandular tissue. There is no mass or developing density or architectural abnormality. Results and adjunct MRI screening option are discussed with the patient at time of visit. MM/MM added views RT IMPRESSION: Additional views show no asymmetric density, mass, or architectural abnormality. ASSESSMENT: BI-RADS 1: Negative RECOMMENDATION: 1. Routine annual mammography screening. 2. The lifetime risk of breast cancer based on the Tyrer-Cuzick Model is 24%. Additional annual adjunct screening with breast MRI may be of benefit in women with a risk score of 20% or greater. This patient's information was entered into a reminder system with a target due date for their next mammogram.
== END 2021-06-05 13:36 | disposition home or self-care (01) ==
LOC: HO.MAMMO 13:35
PROVIDERS: PCP Internal Medicine; Visit Provider Obstetrics & Gynecology
DX: R92.2 Inconclusive mammogram (principal)
CPT/HCPCS: 77065

== ENCOUNTER 2021-11-14 09:34 | Outpatient (REF) | payer MEDICAID, SELFPAY ==
--- NOTE | ~2021-11-14 | MR_ITS ---
EXAMINATION: MR BREAST WITHOUT AND WITH CONTRAST, BILATERAL CLINICAL INFORMATION: 48-year-old for high-risk screening. Lifetime risk greater than 25%; family history mother and maternal aunt. COMPARISON: MRI 12/07/2020 and mammogram to 06/23/2021. TECHNIQUE: Imaging was performed with a dedicated breast coil. Prior to the administration of contrast, bilateral axial T1 and bilateral axial T2 weighted sequences were obtained. After the uneventful administration of?6 mL of Gadavist, dynamic contrast-enhanced VIBRANT series through the breasts in the axial plane were performed. Subtracted images were performed and reviewed. A delayed sagittal sequence through both breasts was acquired. Additionally, CAD post-processing, including maximum intensity projections, 3-D reconstructions and kinetic analysis, were performed an independent workstation and reviewed by the interpreting radiologist is a portion of this exam. FINDINGS: The patient's fibroglandular tissue demonstrates minimal background enhancement. LEFT BREAST: No suspicious masslike or non-masslike enhancement. No abnormal skin thickening or nipple retraction. No abnormal architectural distortion. Review of the T2 weighted images demonstrates no fibrocystic changes or dilated ducts. Review of kinetic images reveals no additional findings. RIGHT BREAST: No suspicious masslike or non-masslike enhancement. No abnormal skin thickening or nipple retraction. No abnormal architectural distortion. There is an oval enhancing mass in the inferomedial aspect of the skin measuring 0.6 cm. This may represent a superficial inflammatory skin process (axial subtracted image 91/108). Review of the T2 weighted images demonstrates no fibrocystic changes or dilated ducts. Review of kinetic images reveals no additional findings. There is no suspicious internal mammary chain or axillary adenopathy. Limited views of the chest and abdomen are unremarkable. MR/MR breast BI wo/w con IMPRESSION: No MR specific evidence of malignancy. There is an enhancing mass on the superficial skin surface of the right breast along the inferolateral medial surface. ASSESSMENT: LEFT BREAST: BI-RADS 1, negative. RIGHT BREAST: BI-RADS 2, benign. RECOMMENDATIONS: Routine mammographic imaging as per most recent study and MRI as per high-risk protocol. Evaluation of the skin lesion in the right breast.
== END 2021-11-14 09:35 | disposition home or self-care (01) ==
LOC: HO.MRI 09:34
PROVIDERS: Visit Provider Obstetrics & Gynecology
DX: Z91.89 Other specified personal risk factors, not elsewhere classified (principal)
CPT/HCPCS: 77049; A9585

== ENCOUNTER 2022-04-21 09:43 | Outpatient (REF) | payer MEDICAID, SELFPAY ==
[2022-04-21 10:57] LABS: Cholesterol 138 mg/dL; HDL Cholesterol 53 mg/dL; LDL Cholesterol Calculated 69 mg/dl; Triglycerides 84 mg/dL
== END 2022-04-21 09:44 | disposition home or self-care (01) ==
LOC: HO.LAB 09:43
PROVIDERS: PCP Nurse Practitioner Family; Visit Provider Nurse Practitioner Family
DX: Z01.818 Encounter for other preprocedural examination (principal); R79.89 Other specified abnormal findings of blood chemistry; I25.10 Atherosclerotic heart disease of native coronary artery without angina pectoris
CPT/HCPCS: 36415; 80061; 99212

== ENCOUNTER 2022-06-02 13:38 | Outpatient (REF) | payer MEDICAID, SELFPAY ==
--- NOTE | ~2022-06-02 | MM_ITS ---
EXAMINATION: MM SCREENING DIGITAL BREAST TOMOSYNTHESIS, BILATERAL CLINICAL INFORMATION: Screening. Asymptomatic. Family history breast cancer, mother, aunt The lifetime risk of breast cancer based on the Tyrer-Cuzick Model is 24%. COMPARISON: Mammography: 06/05/2021, 05/24/2021, 05/22/2020, outside mammography 06/21/2018 ([facility]), bilateral breast MRI 11/14/2021. TECHNIQUE: Digital breast tomosynthesis is performed in both the craniocaudal and mediolateral oblique views along with computer-aided detection (CAD). Synthesized 2D images are generated from the tomosynthesis. FINDINGS: There are scattered areas of fibroglandular density (ACR BI-RADS breast composition Category b). There are no significant masses, abnormal calcifications, or other abnormalities. Parenchymal pattern is similar to prior studies. There is no developing density or architectural abnormality. The axilla and skin contours are unremarkable. No significant changes. MM/MM tomosynthesis screening BI IMPRESSION: No mammographic evidence of malignancy. ASSESSMENT: BI-RADS 1: Negative RECOMMENDATION: -Routine annual mammography screening. -Consider additional annual adjunct screening with breast MRI as clinical risk factors warrant. This patient's information was entered into a reminder system with a target due date for their next mammogram.
== END 2022-06-02 13:39 | disposition home or self-care (01) ==
LOC: HO.MAMMO 13:38
PROVIDERS: PCP Internal Medicine; Visit Provider Obstetrics & Gynecology
DX: Z12.31 Encounter for screening mammogram for malignant neoplasm of breast (principal)
CPT/HCPCS: 77063; 77067

== ENCOUNTER 2022-09-25 08:58 | Day surgery (SDC) | payer MEDICAID, SELFPAY ==
[2022-09-23 13:23] VITALS: BMI 27.3
[2022-09-25] MEDS: Lactated Ringers 1,000 ML 100 ML IVCONT (09:32)
[2022-09-25 09:39] LABS: UPreg QC Valid YES; Urine Pregnancy NEGATIVE (NEGATIVE)
[2022-09-25 09:42] VITALS: BP 120/67; PULSE 71; RESP 18; TEMP 36.8; O2SAT 98
--- NOTE | 2022-09-25 10:13 | MHC.SHP ---
Pre-Procedural Eval Section A Date of Service: 09/25/22 Section B Chief Complaint: screening for malignant neoplasm of colon Details of Present Illness: crc--maternal grandmother Relevant Family History (Specify if Yes): Yes Relevant Social History: Tobacco Use Present Medications: see Short Stay Collaborative assessment Medical History: Significant History (History of cervical dysplasia History of depression) History of Previous Operations: Relevant previous surgery/procedure and date(s) (History of loop electrosurgical excision procedure (LEEP) of cervix) Allergies: Allergies Allergy/AdvReac Type Severity Reaction Status Date / Time lactose [LACTOSE] AdvReac Intermediate DIARRHEA Verified 09/25/22 09:28 latex Allergy Intermediate rash Uncoded 09/25/22 09:28 Review of Systems Sugical H&P ROS: Negative: Constitution, Cardiovascular, Respiratory, Neurological, Psychiatric, Hem-Onc, Allergic/Immunologic, Gastrointestinal, Genitourinary, Musculoskeletal, Integumentary, Endocrine and Eyes/Ears/Nose/Throat Exam Surgical H&P Exam: Normal: HEENT, Normal: Heart, Normal: Lungs, Normal: Extremities, Normal: Abdomen, Normal: Skin and Normal: Neurological Plan Diagnosis/Plan: Unchanged I have reviewed the history and physical and performed a pertinent physical examination on my patient. No changes have occurred unless specified. Time Spent With Patient Time: Total time managing care of this patient today ____ minutes.
--- NOTE | 2022-09-25 10:36 | W.PM.OPN ---
Operative Note Operative Note Date of Service: 09/25/22 Narrative: Operative Information Procedure Description: Colonoscopy Indication: screening Anesthesia: MAC COLONOSCOPY Instrument: Olympus variable stiffness pediatric scope 190L Colonoscopy Monitoring: Vital signs and clinical assessment, continuous EKG monitoring, Pulse oximetry, Carbon Dioxide monitoring and blood pressure monitoring were done throughout the procedure. Colon withdrawal time was 18 minutes. Procedure: The patient was placed in the left lateral decubitis position and pre-procedure medications were administered. After a digital rectal examination of the ano-rectum, the video colonoscope was inserted into the rectum and advanced through the colon to the cecum/TI. The colonoscope was slowly withdrawn in a retrograde panoramic fashion and the colon mucosa was carefully examined including a retroflexed view of the rectum. Findings and interventions are described below. Procedure Difficulty: easy Findings: Terminal Ileum-normal Cecum:normal Ascending Colon: normal Transverse Colon -normal Descending Colon:normal Sigmoid Colon: at 22 cm from anal verge a pedunculated polyp measuring about 15-18 mm was noted. Injected with 2 cc of epinephrine and then removed with hot snare with x 3 ultra clips clips applied on the remaining stalk. Rectum: Retroflexion with small internal hemorrhoids, grade I Anorectum - normal Colon preparation: [place] Bowel Preparation Scale Right colon; 2 Transverse colon: 3 Left colon; 2 (0 = Unprepared colon segment with mucosa not seen due to solid stool that cannot be cleared. 1 = Portion of mucosa of the colon segment seen, but other areas of the colon segment not well seen due to staining, residual stool and/or opaque liquid. 2 = Minor amount of residual staining, small fragments of stool and/or opaque liquid, but mucosa of colon segment seen well. 3 = Entire mucosa of colon segment seen well with no residual staining, small fragments of stool or opaque liquid) Impression and Post Procedure Diagnosis: polyp internal hemorrhoids Plan: High fiber diet leaflet Avoid straining at stool, epsom salts and sitz bath, anusol supps or cream Repeat Colonoscopy in 1-2 years or earlier if clinically indicated Above findings were reviewed with the patient and relevant handouts were provided if indicated.
--- NOTE | 2022-09-25 10:41 | HO.ANESPROP2 ---
HPI - Anesthesia Eval Consult details Narrative: 47 F for colonoscopy Marijuana smoker . Depression PMFSH Active Problems Active Problems: All Active Problems (Updated 03/22/21 @ 15:21 by Darrin Enrique MD) Family history of breast cancer (Acute) Well woman exam (Acute) Increased risk of breast cancer (Acute) Surveillance for control, oral contraceptives (Acute) control counseling (Acute) Past Medical History Medical History History of cervical dysplasia History of depression Functional capacity: independent ambulation Family History Family History Mother HTN (hypertension) Breast cancer Maternal Grandfather Cardiac abnormality Father Diabetes Pulmonary fibrosis Maternal Grandmother Colon cancer Maternal Aunt Breast cancer Family history of problems with anesthesia: No Surgical History Surgical History History of loop electrosurgical excision procedure (LEEP) of cervix History of Problems with Anesthesia: No Social History Social History Alcohol intake: current Alcohol intake frequency: 0-2 drinks per day Patient Tobacco Use Status: Current everyday Tobacco user Cigarettes Per Day: 6 Years Smoked: 22 Sexual orientation: Straight/Heterosexual Meds Allergies Allergy/AdvReac Type Severity Reaction Status Date / Time lactose [LACTOSE] AdvReac Intermediate DIARRHEA Verified 09/25/22 09:28 latex Allergy Intermediate rash Uncoded 09/25/22 09:28 Active Medications: Current Medications Lactated Ringer's (Lr) 1,000 mls @ 100 mls/hr IVCONT .Q10H NANCY Last Admin: 09/25/22 09:32 Dose: 100 mls/hr Exam Exam Date and Time: September 25, 2022 1041 Height,Weight and Vital Signs: Height 5 ft 3 in Weight 70 kg Last Vital Signs Temp 98.2 F 09/25/22 09:42 Pulse 71 09/25/22 09:42 Resp 18 09/25/22 09:42 BP 120/67 09/25/22 09:42 Pulse Ox 98 09/25/22 09:42 O2 Del Method Room Air 09/25/22 09:42 Pertinent Lab Results Pertinent Lab Results: Laboratory Tests 09/25/22 09:00 Urine Test NEGATIVE Airway Mallampati Class: II TM Dist: >3cm Neck ROM: Full Loose/Missing/Broken Teeth: Yes Assessment and Plan Assessment Anesthesia Assessment: Anesthesia Plan Discussed and Chart Reviewed Final Anesthetic Review Family History of Problems with Anesthesia: No History of Problems with Anesthesia: No NPO: Yes ASA Class: II Final Preanesthetic Review: Meds/Allgs Chart Reviewed, Consent Obtained/Reviewed and Anes Risks/Benef Reviewed Patient Risk: Intermediate Procedure Risk: Intermediate Anesthetic Plan Anesthetic Plan: MAC: and Agree w/ Assess. and Plan
[2022-09-25 11:37] VITALS: BP 113/62; PULSE 75; RESP 15; TEMP 36.6; O2SAT 99
[2022-09-25 11:52] VITALS: BP 123/68; PULSE 69; RESP 18; TEMP 36.1; O2SAT 98
== END 2022-09-25 14:00 | disposition home or self-care (01) ==
PROVIDERS: Nurse Practitioner; PCP Internal Medicine; Visit Provider Internal Medicine Gastroenterology
PROC: 0DJD8ZZ Inspection of Lower Intestinal Tract, Via Natural or Artificial Opening Endoscopic (ICD-10-PCS; CPT 45378; principal; 2022-09-25 10:40)
DX: Z12.11 Encounter for screening for malignant neoplasm of colon (principal); D12.5 Benign neoplasm of sigmoid colon; K64.0 First degree hemorrhoids; R79.89 Other specified abnormal findings of blood chemistry; Z91.040 Latex allergy status
CPT/HCPCS: 45385; 45381; 81025; 88305; J0171

== ENCOUNTER → 2022-10-13 09:04 | Outpatient (BNVA) | payer MEDICAID, SELFPAY | PROVIDERS: PCP Internal Medicine; Referring Provider Emergency Medicine; Visit Provider Surgery | DX: L72.3 Sebaceous cyst (principal); Z55.6 Problems related to health literacy | CPT/HCPCS: 99202 ==

== ENCOUNTER → 2022-10-15 10:46 | Outpatient (BNVA) | payer MEDICAID, SELFPAY | PROVIDERS: PCP Internal Medicine; Visit Provider Nurse Practitioner Family | DX: D36.9 Benign neoplasm, unspecified site (principal); Z98.890 Other specified postprocedural states | CPT/HCPCS: 99212 ==

== ENCOUNTER 2023-07-22 11:30 | Outpatient (AMB) | payer OTHER, SELFPAY ==
[2023-07-22 11:35] VITALS: BP 134/58; PULSE 83; BMI 27.8
--- NOTE | 2023-07-22 11:35 | MHC.OFFVIS ---
Intake Vital Signs 07/22/23 11:35 Height 5 ft 3 in Weight 156 lb 15.506 oz BMI 27.8 BP 134/58 L Blood Pressure Location Lt brachial Position Sitting Pulse 83 Pulse Source Pulse Oximeter Intake Visit Reasons: 8 month fu Intake Note: Pt presents to the office today for an 8 month follow up to discuss colonoscopy. Pt states she is feeling well and denies any concerns at this time. Allergies lactose [LACTOSE] Adverse Reaction (Intermediate, Verified 07/22/23 11:37) DIARRHEA latex Allergy (Intermediate, Uncoded 07/22/23 11:37) rash HPI 8 month fu HPI Details LAST VISIT Tubular adenoma Tubular adenoma with high-grade dysplasia found on colonoscopy without submucosal invasion. 1.5-1.8 mm polyp found in sigmoid colon. Patient will need to repeat colonoscopy in 1 year. Patient denies any melena, hematochezia, unintentional weight loss or ribbon like stools. Status post colonoscopy Patient denies any ill effects from the prep, anesthesia procedure itself. Large tubular adenoma found as mentioned above and colorectal screening will need to be repeated in 1 year, sooner if clinically necessary. I will see patient in 8 months to discuss colonoscopy, sooner on as needed basis. Patient is agreeable to this plan and verbalizes understanding of instructions. She was given the opportunity to ask questions and all questions answered. ? TODAY'S VISIT Patient is here today for follow-up and to discuss going for repeat colonoscopy. Patient was found to have tubular adenoma with high-grade dysplasia without submucosal invasion. Polyps was 1.5-1.8 mm found in sigmoid colon. Patient denies any melena, hematochezia, unintentional weight loss or ribbon like stools. Patient reports to be feeling well. Denies any GI concerning symptoms. Patient reports that she did well with anesthesia last colonoscopy. No history of sleep apnea. Not on any anticoagulation medication. [facility] Medical History Tubular adenoma History of cervical dysplasia History of depression Surgical History H/O colonoscopy History of loop electrosurgical excision procedure (LEEP) of cervix Family History Mother HTN (hypertension) Breast cancer Maternal Grandfather Cardiac abnormality Father Diabetes Pulmonary fibrosis Maternal Grandmother Colon cancer Maternal Aunt Breast cancer Social History Alcohol intake: current Alcohol intake frequency: holidays/special occasions only Patient Tobacco Use Status: Current everyday Tobacco user Cigarettes Per Day: 6 Years Smoked: 22 Sexual orientation: Straight/Heterosexual Female Reproductive History Menstrual Age of Menarche: 17 Review of Systems Const Denies weight gain and Denies weight loss ENT Reports no additional complaints, Denies dysphagia and Denies odynophagia Card Reports no additional complaints Resp Reports no additional complaints GI Denies abdominal pain, Denies belching, Denies melena, Denies bloating, Denies change in bowel habits, Denies dysphagia, Denies excessive flatus, Denies dyspepsia, Denies heartburn, Denies diarrhea, Denies loose stools, Denies nausea, Denies odynophagia and Denies vomiting Musc Reports no additional complaints Neuro Reports no additional complaints Psych Reports no additional complaints Endo Reports no additional complaints Physical Exam Vital Signs: Last Vital Signs Pulse 83 07/22/23 11:35 BP 134/58 L 07/22/23 11:35 BMI result Body Mass Index 27.8 Const General: healthy appearing, no acute distress and well developed Nutritional Appearance: well nourished Orientation/consciousness: patient oriented x3 Resp Effort & Inspection: normal respiratory effort, able to speak in complete sentences, no tracheal deviation and symmetric chest movement Auscultation: clear to auscultation bilaterally Cardio Rate: regular rate GI Inspection: Yes normal to inspection and No distended Palpation (GI): Soft to palpation, not firm, nontender and No hepatosplenomegaly present Auscultation: normal bowel sounds General: Yes no CVA tenderness Back/Spine/Pelvis Back: no CVA tenderness Skin General skin exam: elasticity normal, turgor normal and dry skin Neuro General: patient oriented x3 Psych Appearance: grossly normal Mental Status: mental status grossly normal Assessment & Plan Assessment & Plan (1) Tubular adenoma: Code(s): D36.9 - Benign neoplasm, unspecified site Plan History of tubular adenoma with high-grade dysplasia as mentioned above in HPI. Patient will go for colonoscopy. Discussed with patient the importance of good bowel prep and clear liquid diet day before procedure. Patient will do Dulcolax with split MiraLax prep. I will see her after the procedure, sooner on as needed basis. Patient is agreeable to this plan and verbalizes understanding of instructions. She was given the opportunity to ask questions and all questions answered. Thank you for allowing me to participate in her care Medications: New polyethylene glycol 3350 (Miralax) As directed by gastroenterology department at [facility] 238 grams PO ONCE 238 grams 0RF Z12.11 - Encounter for screening for malignant neoplasm of colon bisacodyl (Dulcolax (bisacodyl)) take 4 tabs at noon the day before your colonoscopy 20 mg (4 x 5 mg) PO ONCE 4 tabs 0RF 1 day Z12.11 - Encounter for screening for malignant neoplasm of colon Coding Level of Care Code Est Pt Level 3 (67202) Diagnoses Tubular adenoma D36.9 Time Spent (min) 30 Comment 20 minutes spent with patient and additional 15 minutes spent reviewing her records
== END 2023-07-22 12:45 | disposition home or self-care (01) ==
PROVIDERS: PCP Internal Medicine; Visit Provider Nurse Practitioner Family
DX: D36.9 Benign neoplasm, unspecified site (principal)
CPT/HCPCS: 99213

== ENCOUNTER → 2023-07-22 11:30 | Outpatient (BNVA) | payer OTHER, SELFPAY | PROVIDERS: PCP Internal Medicine; Visit Provider Nurse Practitioner Family | DX: D36.9 Benign neoplasm, unspecified site (principal) | CPT/HCPCS: 99212 ==

== ENCOUNTER 2023-11-12 07:18 | Day surgery (SDC) | payer OTHER, SELFPAY ==
[2023-11-10 14:42] VITALS: BMI 27.8
--- NOTE | 2023-11-11 08:39 | P.CONAN_ITS ---
Documented by User: Charity Sterling NP 11/11/23 08:39 HPI - Anesthesia Eval Consult details Narrative: 48yo F for Colonoscopy PMFSH Active Problems Active Problems: All Active Problems Tubular adenoma (Acute) Sebaceous cyst (Acute) Family history of breast cancer (Acute) Well woman exam (Acute) Increased risk of breast cancer (Acute) Surveillance for control, oral contraceptives (Acute) control counseling (Acute) Past Medical History Medical History Tubular adenoma History of cervical dysplasia History of depression Family History Family History Mother HTN (hypertension) Breast cancer Maternal Grandfather Cardiac abnormality Father Diabetes Pulmonary fibrosis Maternal Grandmother Colon cancer Maternal Aunt Breast cancer Family history of problems with anesthesia: No Surgical History Surgical History H/O colonoscopy History of loop electrosurgical excision procedure (LEEP) of cervix History of Problems with Anesthesia: No Social History Social History Alcohol intake: current Alcohol intake frequency: holidays/special occasions only Patient Tobacco Use Status: Current everyday Tobacco user Cigarettes Per Day: 6 Years Smoked: 22 Use of substances other than those prescribed or required for medical reasons: Yes Substance Use Frequency: Daily Are you DNR?: No Advance Directives: No Advance Directives Information Provided: Yes Sexual orientation: Straight/Heterosexual Meds Allergies Allergy/AdvReac Type Severity Reaction Status Date / Time lactose [LACTOSE] AdvReac Intermediate DIARRHEA Verified 07/22/23 11:37 latex Allergy Intermediate rash Uncoded 07/22/23 11:37 Exam Height,Weight and Vital Signs: Height 5 ft 3 in Weight 71.214 kg Assessment and Plan Assessment Anesthesia Assessment: Chart Reviewed Final Anesthetic Review Family History of Problems with Anesthesia: No History of Problems with Anesthesia: No Documented by User: Parveen Brown MD 11/12/23 08:05 [facility], [facility] Past Medical History Medical History Tubular adenoma History of cervical dysplasia History of depression Family History Family History Mother HTN (hypertension) Breast cancer Maternal Grandfather Cardiac abnormality Father Diabetes Pulmonary fibrosis Maternal Grandmother Colon cancer Maternal Aunt Breast cancer Surgical History Surgical History H/O colonoscopy History of loop electrosurgical excision procedure (LEEP) of cervix Social History Social History Alcohol intake: current Alcohol intake frequency: holidays/special occasions only Patient Tobacco Use Status: Current everyday Tobacco user Cigarettes Per Day: 6 Years Smoked: 22 Use of substances other than those prescribed or required for medical reasons: Yes Substance Use Frequency: Daily Are you DNR?: No Advance Directives: No Advance Directives Information Provided: Yes Sexual orientation: Straight/Heterosexual Meds Allergies Allergy/AdvReac Type Severity Reaction Status Date / Time lactose [LACTOSE] AdvReac Intermediate DIARRHEA Verified 07/22/23 11:37 latex Allergy Intermediate rash Uncoded 07/22/23 11:37 Exam Airway Mallampati Class: II TM Dist: >3cm Neck ROM: Full Assessment and Plan Assessment Anesthesia Assessment: Anesthesia Plan Discussed and Smoking Cess. Discussed Final Anesthetic Review NPO: Yes ASA Class: II Final Preanesthetic Review: No Changes in Pt Med Stat, Meds/Allgs Chart Reviewed, Consent Obtained/Reviewed and Anes Risks/Benef Reviewed Patient Risk: Intermediate Procedure Risk: Low Anesthetic Plan Anesthetic Plan: TIVA Disposition: Standard PACU
[2023-11-12 07:30] VITALS: BP 106/68; PULSE 80; RESP 16; TEMP 36.3; O2SAT 98; BMI 25.6
[2023-11-12] MEDS: Lactated Ringers 1,000 ML 100 ML IVCONT (07:41)
--- NOTE | 2023-11-12 08:08 | MHC.SHP ---
Pre-Procedural Eval Section A - 24 Hr Update-Section A only Date of Service: 11/12/23 Section B - Complete if H&P > 30 days Chief Complaint: Personal history of colonic polyps Relevant Family History (Specify if Yes): No Relevant Social History: Tobacco Use Present Medications: see Short Stay Collaborative assessment Medical History: Significant History (Tubular adenoma History of cervical dysplasia History of depression) History of Previous Operations: Relevant previous surgery/procedure and date(s) (H/O colonoscopy History of loop electrosurgical excision procedure (LEEP) of cervix) Allergies: Allergies Allergy/AdvReac Type Severity Reaction Status Date / Time lactose [LACTOSE] AdvReac Intermediate DIARRHEA Verified 07/22/23 11:37 latex Allergy Intermediate rash Uncoded 07/22/23 11:37 Review of Systems Sugical H&P ROS: Negative: Constitution, Cardiovascular, Respiratory, Neurological, Psychiatric, Hem-Onc, Allergic/Immunologic, Gastrointestinal, Genitourinary, Musculoskeletal, Integumentary, Endocrine and Eyes/Ears/Nose/Throat Exam Surgical H&P Exam: Normal: HEENT, Normal: Heart, Normal: Lungs, Normal: Extremities, Normal: Abdomen, Normal: Skin and Normal: Neurological Plan Diagnosis/Plan: Unchanged I have reviewed the history and physical and performed a pertinent physical examination on my patient. No changes have occurred unless specified. Time Spent With Patient Time: Total time managing care of this patient today ____ minutes.
[2023-11-12 08:09] LABS: UPreg QC Valid YES; Urine Pregnancy NEGATIVE (NEGATIVE)
--- NOTE | 2023-11-12 08:46 | HO.OPN-COLON ---
Colonoscopy Operative Note Operative Note Date of Service: 11/12/23 Narrative: Operative Information Procedure Description: Colonoscopy Indication: hx of colon polyp Anesthesia: MAC COLONOSCOPY Instrument: Olympus variable stiffness pediatric scope 190L Colonoscopy Monitoring: Vital signs and clinical assessment, continuous EKG monitoring, Pulse oximetry, Carbon Dioxide monitoring and blood pressure monitoring were done throughout the procedure. Colon withdrawal time was 13 minutes. Procedure: The patient was placed in the left lateral decubitis position and pre-procedure medications were administered. After a digital rectal examination of the ano-rectum, the video colonoscope was inserted into the rectum and advanced through the colon to the cecum/TI. The colonoscope was slowly withdrawn in a retrograde panoramic fashion and the colon mucosa was carefully examined including a retroflexed view of the rectum. Findings and interventions are described below. Procedure Difficulty: easy Findings: Terminal Ileum-normal Cecum:normal Ascending Colon: 4-5 mm sessile polyp removed with cold forceps and clip applied for hemostasis Transverse Colon -normal Descending Colon:normal Sigmoid Colon: 8 mm sessile polyp removed with cold snare and x1 clip applied for hemostasis Rectum: Retroflexion with small internal hemorrhoids seen, grade I Anorectum - normal Intervention: cold forceps, cold snare Colon preparation: [place] Bowel Preparation Scale Right colon; 2 Transverse colon: 2 Left colon; 2 (0 = Unprepared colon segment with mucosa not seen due to solid stool that cannot be cleared. 1 = Portion of mucosa of the colon segment seen, but other areas of the colon segment not well seen due to staining, residual stool and/or opaque liquid. 2 = Minor amount of residual staining, small fragments of stool and/or opaque liquid, but mucosa of colon segment seen well. 3 = Entire mucosa of colon segment seen well with no residual staining, small fragments of stool or opaque liquid) Impression and Post Procedure Diagnosis: colon polyps internal hemorrhoids Plan: High fiber diet leaflet Avoid straining at stool, epsom salts and sitz bath, anusol supps or cream Repeat Colonoscopy in 1-2 years or earlier if clinically indicated Above findings were reviewed with the patient and relevant handouts were provided if indicated.
[2023-11-12 08:49] VITALS: BP 99/52; PULSE 69; RESP 16; TEMP 36.1; O2SAT 100
[2023-11-12 09:04] VITALS: BP 110/72; PULSE 63; RESP 18; TEMP 36.7; O2SAT 100
== END 2023-11-12 09:20 | disposition home or self-care (01) ==
PROVIDERS: Nurse Practitioner; PCP Internal Medicine; Visit Provider Internal Medicine Gastroenterology
PROC: 0DJD8ZZ Inspection of Lower Intestinal Tract, Via Natural or Artificial Opening Endoscopic (ICD-10-PCS; CPT 45378; principal; 2023-11-12 08:20)
DX: D12.2 Benign neoplasm of ascending colon (principal); D12.5 Benign neoplasm of sigmoid colon; K64.0 First degree hemorrhoids; Z86.010 Personal history of colon polyps; F17.210 Nicotine dependence, cigarettes, uncomplicated
CPT/HCPCS: 45385; 45380; 81025; 88305; J2704

== ENCOUNTER → 2023-11-12 07:18 | Outpatient (BNV) | payer OTHER, SELFPAY | PROVIDERS: PCP Internal Medicine; Visit Provider Internal Medicine Gastroenterology | DX: Z12.11 Encounter for screening for malignant neoplasm of colon (principal); Z86.010 Personal history of colon polyps; D12.2 Benign neoplasm of ascending colon; D12.5 Benign neoplasm of sigmoid colon; K64.0 First degree hemorrhoids | CPT/HCPCS: 45380; 45385 ==